=== PATIENT | male | born 1950 | race Caucasian/White ===

== ENCOUNTER 2022-05-17 08:26 | Day surgery (SDC) | payer MEDICARE ==
[~2022-05-17] VITALS: Ht 177.8 cm; Wt 99.3 kg
[~2022-05-17 08:26] MED LIST: ERGO400 PO; Ginger250 MG PO; MAGNESIUM OXID500 MG PO; PROBIOTIC1 EA13 PO; Preservision S1 EACH PO; QUERCETIN500 MG PO; Selenomax200 MCG PO; TURMERIC500 M2 PO; UBID10 PO
[2022-05-17] MEDS ORDERED: HYDCHL25 PO (08:59)
--- NOTE | 2022-05-17 13:36 | NUR ---
Patient up to Ambulate independently. Gait steady. Discharge instructions reviewed with patient. Patient verbalizes understanding. Copy given to patient to take home. Dressing to procedure site clean, dry, intact with no visible drainage, swelling, erythema or bruising noted. Patient States Post-Procedure ride home has been arranged with . Discharged via wheelchair to private car for ride home.
== END 2022-05-17 13:28 | disposition home or self-care (01) ==
LOC: ORSCMMR 08:26
PROVIDERS: Surgery
PROC: 0YU54JZ Supplement Right Inguinal Region with Synthetic Substitute, Percutaneous Endoscopic Approach (ICD-10-PCS; principal; 2022-05-17 09:45)
PROC: 8E0W4CZ Robotic Assisted Procedure of Trunk Region, Percutaneous Endoscopic Approach (ICD-10-PCS; principal; 2022-05-17 09:45)
DX: K40.90 Unilateral inguinal hernia, without obstruction or gangrene, not specified as recurrent (principal); I10 Essential (primary) hypertension; Z87.891 Personal history of nicotine dependence; E78.5 Hyperlipidemia, unspecified; Z86.16 Personal history of COVID-19; Z79.899 Other long term (current) drug therapy
CPT/HCPCS: 49650; S2900; A9270; C1781; J0690; J1100; J2405; J2704; J2795; J3010; J7120